=== PATIENT | male | born 1995 | race Caucasian/White ===

== ENCOUNTER 2017-03-29 05:49 | Emergency (ER) | payer OTHER, BC ==
[~2017-03-29] VITALS: Ht 185.4 cm; Wt 110.0 kg
[2017-03-29 05:55] VITALS: TEMP 36.8; O2SAT 96; Ht 185.4 cm; Wt 110.0 kg
[2017-03-29 06:40] LABS: BUN/CREATININE RATIO 9.5 (10-20); CALCIUM 8.6 mg/dl (8.5-10.1); POTASSIUM 3.9 mmol/L (3.5-5.1)
--- NOTE | 2017-03-29 07:32 | EMERGENCY ROOM VISIT NOTE ---
History First contact with patient: 05:50 Chief Complaint: ALCOHOL OVERDOSE Stated Complaint: ALCOHOL OVERDOSE Nursing Triage Summary: arrived via amb with bls. pt is alert and oriented walked to bed 11 b. pt was up here visiting and fell asleep by a hernandez and [facility] found him and called ems.pt has small lac to posterior scalp pt unsyre how he got that. denies any c/o. History of Present Illness The patient is a 22 year old male who presents to the Emergency Room via BLS for evaluation of an alcohol overdose. The patient was apparently found sleeping in a hernandez. The patient admits to drinking liquor tonight. He denies any drug use. He denies any head trauma. The patient has no complains at this time. Review of Systems A complete 10 point review of systems was reviewed with the patient with pertinent positives and negatives as per history of present illness. All else were negative. Past Medical/Surgical History Medical Problems: (1) No significant past medical history Surgical Problems: (1) History of reconstruction of anterior cruciate ligament tear (2) History of wisdom tooth extraction Family History FH: cancer FH: hypertension Social History Smoking Status: Never Smoker Alcohol Use: occasionally Marital Status: single Occupation Status: [employer] student Current/Historical Medications No Active Prescriptions or Reported Meds Physical Exam Vital Signs Date Time Temp Pulse Resp B/P (MAP) Pulse Ox O2 Delivery O2 Flow Rate FiO2 03/29/17 14:00 68 16 131/71 100 03/29/17 12:01 71 16 136/77 99 Room Air 03/29/17 10:09 66 18 133/72 98 Room Air 03/29/17 08:41 69 18 139/81 97 Room Air 03/29/17 07:04 77 18 144/92 96 03/29/17 05:55 36.8 93 20 139/97 96 Room Air 03/29/17 05:55 96 Room Air Pain Rating (0-10): 0 Physical Exam VITALS: Vitals are noted on the nurse's note and reviewed by myself. Vital signs stable. GENERAL: This is a 22-year-old male, sitting up in bed, appears to be visibly intoxicated, smells of ETOH. SKIN: There is a very small abrasion to the posterior scalp. No bruising or laceration. The skin was without erythema, edema, or bruising. HEAD: Normocephalic atraumatic. EARS: External auditory canals clear. No hemotympanum. EYES: Pupils equal round and reactive to light and accommodation. NOSE: No deformities noted. MOUTH: No loose or chipped teeth. NECK: No cervical spine tenderness. HEART: Regular rate and rhythm without murmurs gallops or rubs. LUNGS: Clear to auscultation bilaterally without wheezes, rales or rhonchi. ABDOMEN: Soft, nontender. MUSCULOSKELETAL: Full range of motion throughout. Strength intact throughout. NEURO: Patient was alert and oriented to person place and time. Speech slightly slurred. Gross sensation intact. Patient cooperative with examiner. Medical Decision & Procedures Laboratory Results 03/29/17 06:00 Test 03/29/17 06:00 Anion Gap 10.0 mmol/L (3-11) Est Creatinine Clear Calc Drug Dose 151.9 ml/min Estimated GFR () 124.1 Estimated GFR (Non- 107.1 BUN/Creatinine Ratio 9.5 (10-20) Calcium Level 8.6 mg/dl (8.5-10.1) Ethyl Alcohol mg/dL 277.0 mg/dl (0-3) Medical Decision Differential diagnosis includes alcohol intoxication, drug use, infection, hypoglycemia, head trauma, among others. The patient is a 22-year-old male who presents today for evaluation of probable alcohol intoxication. Labs revealed an alcohol of 277. Kidney function was found to be within normal limits. Labs were otherwise unremarkable. There is no evidence of significant head trauma or infection on exam. The patient was placed on the compliance monitor and placed in the prone position. They were monitored for an appropriate amount of time and when they were more sober, they were reassessed and discharged home in a taxi. The patient was advised not to drink anymore alcohol today and to follow-up with [facility] for any further concerns. Medication Reconcilliation Current Medication List: was personally reviewed by me Blood Pressure Screening Patient's blood pressure: Normal blood pressure Impression Primary Impression: Alcoholic intoxication Departure Information Dispostion Home / Self-Care Condition GOOD Prescriptions No Active Prescriptions or Reported Meds Referrals [facility] (PCP) Patient Instructions [facility]: [employer] Students and Alcohol Related Visits, My [facility] Additional Instructions You were evaluated in emergency department for intoxication. This is a sign of Alcohol Abuse and should not be taken lightly. You had a blood alcohol level that was significantly elevated. Over the next 24 hours keep well hydrated and eat light meals. Don't drink any more alcohol. This is important. Please discuss this visit with your Primary Care Provider, [facility] and/or your loved ones. Unless an exceptional circumstance, the Hospital DOES NOT contact anyone during your visit, nor is your Protected Medical Information released to anyone without your approval/request. This means we do not contact your Parents, the Police, [facility], etc. However, you will likely receive a bill from the Hospital and/or your Insurance company, which will usually be sent to the Primary Policy Delgado (often one's Parents) If your incident was on campus, or if the Police were involved, they will often contact the University to make them aware of what happened. Often this will result in you being required to take Alcohol Education classes (ie BASICS class) . Please see information given to you at discharge regarding contact for this. If the Police were involved you will likely be cited for public intoxication. Please contact either [facility] Police or the [place] Police for further information. Call 911 or return to Emergency Department if you develop: Passing out, difficulty breathing, many episodes of vomiting, blood in vomit or stool, abdominal pain, fevers, or other severe symptoms. We are always here to help if you feel you need further evaluation or treatment. Problem Qualifiers Primary Impression: Alcoholic intoxication Complication of substance-induced condition: uncomplicated Qualified Codes: F10.920 - Alcohol use, unspecified with intoxication, uncomplicated
[2017-03-29 14:00] VITALS: BP 131/71; PULSE 68; O2SAT 100
== END 2017-03-29 14:06 | disposition home or self-care (01) ==
LOC: EDBD 05:49 → C.EDB 05:51
DX: T50.991A Poisoning by other drugs, medicaments and biological substances, accidental (unintentional), initial encounter (principal); X58.XXXA Exposure to other specified factors, initial encounter